=== PATIENT | female | born 1990 | race Caucasian/White ===

== ENCOUNTER 2016-08-13 22:06 | Emergency (ER) | payer OTHER, MEDICAID ==
[2016-08-13 22:53] LABS: SPECIFIC GRAVITY 1.015 (1.001-1.030); URINE BILIRUBIN NEGATIVE (NEGATIVE); URINE BLOOD 2+ (NEGATIVE); URINE GLUCOSE (UA) NEGATIVE (NEGATIVE); URINE LEUKOCYTE ESTERASE 1+ (NEGATIVE); URINE NITRITE NEGATIVE (NEGATIVE); URINE PROTEIN NEGATIVE (NEGATIVE); URINE UROBILINOGEN NORMAL (0-1 mg/dl)
[2016-08-13 22:58] LABS: HCG,QUALITATIVE URINE NEGATIVE
[2016-08-13 22:59] LABS: URINE APPEARANCE HAZY; URINE COLOR YELLOW
[2016-08-13 23:11] LABS: URINE BACTERIA 1+; URINE EPITHELIAL CELLS 0-1 /hpf; URINE WBC 20-30 /hpf
[2016-08-14] MEDS ORDERED: PHENAZOPYRIDINE HCL 200 MG TABLET ONE (00:22)
[2016-08-14] MEDS ORDERED: CEPHALEXIN 500 MG CAPSULE ONE (00:22)
== END 2016-08-14 00:51 | disposition home or self-care (01) ==
LOC: ED 22:06
DX: N39.0 Urinary tract infection, site not specified (principal)
CPT/HCPCS: 81025; 87086; 87186; 81001; 99283 ×2; A9270 ×2